=== PATIENT | female | born 1935 | race Caucasian/White ===

== ENCOUNTER 2016-07-29 10:40 | Emergency (ER) | payer BC ==
[~2016-07-29 10:40] MED LIST: ALEVE220 MG PO; ASAB PO; ASABAYER PO; PRAVACHOL40 MG PO; ZESTORETIC PO
== END 2016-07-29 14:12 | disposition home or self-care (01) ==
LOC: ER 10:40
PROC: 0HQ0XZZ Repair Scalp Skin, External Approach (ICD-10-PCS; principal; 2016-07-29)
DX: S01.01XA Laceration without foreign body of scalp, initial encounter (principal); J44.9 Chronic obstructive pulmonary disease, unspecified; Z87.891 Personal history of nicotine dependence; Z85.21 Personal history of malignant neoplasm of larynx; Z88.0 Allergy status to penicillin; Z88.5 Allergy status to narcotic agent; Z88.8 Allergy status to other drugs, medicaments and biological substances; Z79.82 Long term (current) use of aspirin; W22.8XXA Striking against or struck by other objects, initial encounter
CPT/HCPCS: 70450; 99283

== ENCOUNTER 2016-08-07 14:42 | Emergency (ER) | payer BC | END 2016-08-07 16:44 | disposition home or self-care (01) | LOC: ER 14:42 | DX: S01.01XD Laceration without foreign body of scalp, subsequent encounter (principal); Z88.0 Allergy status to penicillin; Z88.5 Allergy status to narcotic agent; Z88.8 Allergy status to other drugs, medicaments and biological substances; Z79.82 Long term (current) use of aspirin | CPT/HCPCS: 99281 ==